=== PATIENT | male | born 1995 | race Caucasian/White ===

== ENCOUNTER 2024-11-13 12:15 | Emergency (ER) | payer BC, MEDICAID, OTHER ==
[~2024-11-13] VITALS: Ht 175.3 cm; Wt 114.0 kg
[2024-11-13 12:43] VITALS: TEMP 36.8; O2SAT 97
[2024-11-13] MEDS ORDERED: CYCL10TA21 MT (14:34)
[2024-11-13] MEDS ORDERED: ACET-2708 MT (14:34)
[2024-11-13] MEDS ORDERED: LIDO-53 TP (14:34)
[2024-11-13] MEDS ORDERED: IBUP-2028 MT (14:34)
[2024-11-13] MEDS: KETOROLAC 30MG/ML VIAL IM ONE (15:05)
[2024-11-13] MEDS: ACETAMINOPHEN 325MG TABLET PO ONE (15:06)
[2024-11-13] MEDS: LIDOCAINE 5% PATCH TOP SCH (15:06)
[2024-11-13 15:27] VITALS: BP 122/66; PULSE 60; RESP 18; O2SAT 99
== END 2024-11-13 15:30 | disposition home or self-care (01) ==
LOC: ER 12:15
DX: S06.0X0A Concussion without loss of consciousness, initial encounter (principal); S16.1XXA Strain of muscle, fascia and tendon at neck level, initial encounter; S39.012A Strain of muscle, fascia and tendon of lower back, initial encounter; F10.90 Alcohol use, unspecified, uncomplicated; V49.9XXA Car occupant (driver) (passenger) injured in unspecified traffic accident, initial encounter; Y93.89 Activity, other specified; Y92.89 Other specified places as the place of occurrence of the external cause; Y99.8 Other external cause status; Y90.9 Presence of alcohol in blood, level not specified
CPT/HCPCS: 99283; 96372; J1885